=== PATIENT | male | born 1955 | race Caucasian/White ===

== ENCOUNTER 2022-05-14 11:21 | Day surgery (SDC) | payer MEDICARE ==
[2022-05-12 13:28] VITALS: BMI 31.9
[2022-05-14] MEDS ORDERED: Bupivacaine PF 0.5% 30 ML VIAL ONE (12:02)
[2022-05-14] MEDS ORDERED: Dexamethasone 4 mg/ml Vial ONE (12:25)
[2022-05-14] MEDS ORDERED: Fentanyl 100 MCG/2 ML VIAL ONE (12:25)
[2022-05-14] MEDS ORDERED: PROPOFOL 20 ML ONE (12:25)
[2022-05-14] MEDS ORDERED: Ondansetron PF 4 MG/2 ML Vial ONE (12:25)
[2022-05-14] MEDS ORDERED: Ketorolac Tromethamine 30 MG/ML VIAL ONE (12:25)
[2022-05-14] MEDS ORDERED: Clindamycin/D5W 900 mg/50 ml Premix Bag ONE (12:28)
[2022-05-14] MEDS ORDERED: ePHEDrine Sulfate 50 MG/10 ML VIAL ONE (13:09)
[2022-05-14] MEDS ORDERED: PHENYLEPHRINE-NS 100 MCG/ML 10 ML SYRINGE ONE (13:32)
[2022-05-14] MEDS ORDERED: Midazolam HCl 2 mg/2 ml Vial ONE (13:48)
== END 2022-05-14 15:35 | disposition home or self-care (01) ==
LOC: CSHSDC 11:21
PROVIDERS: ATTEND Podiatrist Foot & Ankle Surgery
PROC: 0SGM0JZ Fusion of Right Metatarsal-Phalangeal Joint with Synthetic Substitute, Open Approach (ICD-10-PCS; principal; 2022-05-14)
DX: M20.21 Hallux rigidus, right foot (principal); L97.519 Non-pressure chronic ulcer of other part of right foot with unspecified severity; Z88.0 Allergy status to penicillin
CPT/HCPCS: 28750; 73620; C1713 ×3; J1100; J1885; J2250; J2405; J2704; J3010; J3490; S0020